=== PATIENT | female | born 1975 | race Caucasian/White ===

== ENCOUNTER 2020-02-09 18:33 | Inpatient (IN) | payer OTHER ==
[~2020-02-09] VITALS: Ht 149.9 cm; Wt 45.4 kg
--- NOTE | ~2020-02-09 | HC ---
Formerly [facility] [place] [address] CONSULTATION Name: MARY HERNADEZ Room #: [facility] IN M.R.#: [id number] Admission: 02/09/20 Attend Phys: Axel Nelson Discharge: Date of : 71 Report #: [id number] THIS REPORT FOR: cc: DESMOND King family physician/PCP DESMOND - Christine family physician/PCP Rosario Blanco MD ~ CC: [facility] physician/PCP Axel Nelson REASON FOR CONSULTATION: Hyponatremia. REASON FOR PRESENTATION: Vomiting. HISTORY OF PRESENT ILLNESS: A 45-year-old with no known previous medical problems. She presented to the hospital reporting significant weakness after about a week history of vomiting and nausea. She was unable to tolerate oral intake. She denies any abdominal pain. She denies any previous similar episodes. The patient was found to be hyponatremic with a sodium of 114. She denies any previous similar events. She does not take any regular medications. She denies drug or alcohol abuse. The patient; however, admitted to excessive water intake about 12 pitchers of the 500 mL container a day. She denies any headache or dizziness. No seizure activities. She was started on IV fluid and her sodium had risen up to 120 from 114 on presentation within about 4 hours mandating a Nephrology consultation. ALLERGIES: CODEINE AND PENICILLIN. PAST MEDICAL HISTORY: None. FAMILY HISTORY: Mom of diabetes. MEDICATIONS: Folic acid. REVIEW OF SYSTEMS: GENERAL: No fever or chills. However, she did have significant weakness. CARDIOVASCULAR: No chest pain or palpitation. PULMONARY: No cough or hemoptysis. GASTROINTESTINAL: As per the history of present illness. GENITOURINARY: No frequency, no urgency. MUSCULOSKELETAL: No back pain, no morning stiffness. PHYSICAL EXAMINATION: GENERAL: She is alert, oriented, in no apparent distress. VITAL SIGNS: Blood pressure on presentation was 124/84. HEAD AND NECK: No jugular venous distention, no bruit, no thyromegaly. Emaciated and cachectic. CARDIOVASCULAR: No rub detected. Regular. Formerly [facility] [address] [place] [address] CONSULTATION Name: SATYAMARY Room #: [facility]- [facility]M IN M.R.#: [id number] Admission: 02/09/20 Attend Phys: Axel Nelson Discharge: Date of : 71 Report #: [id number] CHEST: No crackles or wheezes. ABDOMEN: Soft, nontender. EXTREMITIES: Lower extremities, no edema. NEUROLOGICAL: Alert, oriented x3. No gross neurological deficit. LABORATORY VALUES: Reviewed. Sodium is 120, potassium is 2.7, chloride is 82. BUN is 7, creatinine 0.4. Magnesium on presentation was 1.2. IMPRESSION AND PLAN: 1. Acute hyponatremia. 2. Hypomagnesemia. 3. Excessive water intake. 4. Suspected excessive alcohol intake. 5. Her hyponatremia is well explained by her excessive water intake and low solid intake. There might be an element of alcohol abuse here given her significant hypokalemia and hypomagnesemia. 6. Her sodium has gone up by 6 mEq over a period of 5 hours and her IV fluid needs to be discontinued. Continue to replace her potassium. 7. Repeat labs. 8. Discontinue IV fluid. 9. Her sodium issue should be handled with fluid restriction alone and this would rectify within the next 24-48 hours. She has no indication for any other measures. Further management of her hyponatremia including 3% saline. By: [id number] Rosario Blanco MD /nt
[2020-02-09 18:38] VITALS: BP 124/84
[2020-02-09] MEDS ORDERED: CENTRUM COMPLE1 EACH PO (19:17)
[2020-02-09 19:18] LABS: URINE BLOOD TRACE (Negative); URINE CLARITY CLEAR; URINE COLOR YELLOW; URINE GLUCOSE-RANDOM* NEGATIVE (Negative); URINE KETONES 3+ (Negative); URINE LEUKOCYTES-REFLEX NEGATIVE (Negative); URINE NITRITE-REFLEX NEGATIVE (Negative); URINE PROTEIN (DIPSTICK) 2+ (Negative); URINE SPECIFIC GRAVITY >= 1.030 (1.005-1.035)
[2020-02-09 19:22] LABS: ICTOTEST (BILI CONFIRMATORY) Negative (Negative); URINE BILIRUBIN NEGATIVE (Negative)
[2020-02-09 19:23] LABS: URINE REDUCING SUBSTANCE NEGATIVE
[2020-02-09 19:35] LABS: BACTERIA-REFLEX 1-9 Few /HPF (None Seen); CASTS None Seen /LPF (None Seen); CRYSTALS None Seen /LPF (None Seen); SQUAMOUS 4-10 Moderate /LPF (0-3); URINE RBC 0-2 Rare /HPF (0-2); URINE WBC-REFLEX 0-5 Rare /HPF (0-5)
[2020-02-09 20:06] LABS: ABSOLUTE NEUTROPHILS 8.5 thou/uL (1.4-8.2); BASOPHILS 0.1 % (0.0-2.0); EOSINOPHILS 0.2 % (0.0-3.0); HEMATOCRIT 42.6 % (37.0-47.0); HEMOGLOBIN 15.3 gm/dL (12.0-15.0); LYMPHOCYTES 9.8 % (24.0-44.0); MCH 33.6 pg (26.0-34.0); MCHC 35.8 g/dL (28.0-37.0); MCV 93.8 fL (80.0-100.0); MONOCYTES 5.1 % (1.0-8.0); POLYS 84.8 % (36.0-66.0); RBC 4.54 mil/uL (4.20-5.00); RDW 13.4 % (10.5-14.5); WBC 10.1 thou/uL (4.0-11.0)
[2020-02-09 20:21] LABS: ANISOCYTOSIS 1+
[2020-02-09 20:22] LABS: PLATELET COUNT 59 thou/uL (150-400)
[2020-02-09 21:22] LABS: ALBUMIN 2.9 g/dL (3.4-5.0); CALCIUM 7.7 mg/dL (8.5-10.1); CREATININE 0.4 mg/dL (0.6-1.0); TOTAL PROTEIN 6.1 g/dL (6.4-8.2)
[2020-02-09 21:24] LABS: POTASSIUM 2.4 mmol/L (3.5-5.1)
[2020-02-09 22:26] VITALS: BP 135/84
[2020-02-09 22:43] VITALS: BP 135/84
[2020-02-10] VITALS (15 sets, daily range): BP systolic 83–108; BP diastolic 47–74
[2020-02-10 01:21] LABS: CALCIUM 7.6 mg/dL (8.5-10.1); CREATININE 0.4 mg/dL (0.6-1.0); MAGNESIUM 1.2 mg/dL (1.8-2.4)
[2020-02-10 01:35] LABS: POTASSIUM 2.7 mmol/L (3.5-5.1)
--- NOTE | 2020-02-10 04:51 | NUR ---
PT IS AN ER ADMITTED, WHO WAS ADMITTED WITH HYPOKALEMIA, N&V, HYPONATREMIA. PT IS STABLE. NO SIGN OF DISTRESS NOTED. PT IS ALERT AND ORIENTED. ADMISSION ASSESSMENT, EDUCATION AND DATA COMPLETED. DENIES ANY PAIN. NO SIGN OF NAUSEA. FALL PRECAUTION IN PLACE. SCHEDULED MEDS ADMINISTERED TO PT. TOLERATING IV MEDS ADMINISTERED. DENIES ANY FURTHER NEEDS AT THIS TIME.
[2020-02-10 08:06] LABS: CALCIUM 8.5 mg/dL (8.5-10.1); CREATININE 0.5 mg/dL (0.6-1.0)
[2020-02-10 08:10] LABS: POTASSIUM 2.8 mmol/L (3.5-5.1)
--- NOTE | 2020-02-10 08:12 | NUR ---
Dr. Blanco rounded this morning, early. He called recently and expressed to discontinue the IVF and call with morning labs. Nurse noted critical potassium lab value. She is currently receiving a potassium infusion, however, it is gtt slowly as it is painful to her. This was relayed to Dr. Blanco who expressed she needs a picc line. IV team to be notified when they arrive today.
--- NOTE | 2020-02-10 08:22 | NUR ---
Dr. Blanco returned call. Regular diet ordered with 1500ml fluid restriction Stop IV potassium for now and give oral potassium. Place picc line.
--- NOTE | 2020-02-10 09:12 | NUR ---
cm tried x 3 to reach pt at bedside via phone. there is phone in her room but unable to dial into the room. cm spoke with bedside nurse and asked to have ger call cm. cm also tried calling pt number listed and went to voice mail for ger, cm did leave a message requested call back.
--- NOTE | 2020-02-10 10:30 | NUR ---
1030- IV TEAM RN HERE FOR PICC LINE PLACEMENT PER DR. HERNÁNDEZ ORDER. PATIENT REQUIRING IV ELECTROLYTE REPLACEMENT AND SHE IS UNABLE TO TOLERATE IT THROUGH THE PERIPHERAL IV ROUTE. NURSE PROVIDED RISKS VS BENEFITS FOR THE LINE PLACEMENT. PATIENT EXPRESSED SHE UNDERSTOOD. CONSENT SIGNED.
--- NOTE | 2020-02-10 11:13 | NUR ---
VASCULAR ACCESS CONSULTED FOR PICC LINE FOR ACCESS. PT'S LABS,MEDS,HISTORY,ORDER AND CONSENT VERIFIED. DISCUSSED BENEFITS AND RISK WITH PT, VERBALIZED UNDERSTANDING. RASHAWN AVILES WAS WIDELY PATENT WITH USG, 4FR POWER PICC TRIMMED TO 40CM INSERTED TO 2CM EXTERNAL. PT TOLERATED WELL. STAT CXR ORDERED.
--- NOTE | 2020-02-10 11:43 | NUR ---
CXR CONFIRMED PICC IN SVC, RELEASED FOR IMMEDIATE USE PER PROTOCOL TO MOISES GRISSOM
--- NOTE | 2020-02-10 11:55 | NUR ---
1155- CHEST XRAY PERFORMED. CONFIRMATION OF LINE PLACEMENT OBTAINED, LINE IN GOOD POSITION PER IV TEAM RN AND RADIOLOGY. PATIENT RESTING AT THIS TIME.
--- NOTE | 2020-02-10 15:01 | NUR ---
PATIENT TRANSFERED TO CCU ROOM 218. SHE HAD HER CLOTHES, GLASSES, CELL PHONE. POTASSIUM WAS PROVIDED IV PRIOR TO TRANSFER PER MD ORDER.
--- NOTE | 2020-02-10 17:31 | NUR ---
ASSUMED CARE OF PT AT APPROX 1430 FROM ICU. ASSESSEMENTS CHARTED. MEDS GIVEN PER MAR. PT A&OX4, NO C/O N/V. PT UP WITH ASST D/T IV POLE. WILL CONTINUE TO MONITOR AND FOLLOW POC.
[2020-02-11 04:40] VITALS: BP 134/74
--- NOTE | 2020-02-11 05:55 | NUR ---
Pt. slept fair during the night. Denies any pain.No nausea or vomiting. Voiding per toilet and calls appropriately. Bed alarm on for safety. Compliant with fluid restriction. Making progress towards care plan goals.
[2020-02-11 06:16] LABS: CALCIUM 8.3 mg/dL (8.5-10.1); CREATININE 0.5 mg/dL (0.6-1.0); POTASSIUM 3.3 mmol/L (3.5-5.1)
[2020-02-11 08:26] VITALS: BP 110/64
[2020-02-11 08:35] VITALS: BP 110/64
[2020-02-11 09:43] VITALS: BP 110/64
--- NOTE | 2020-02-11 11:22 | NUR ---
ASSUMMED PT CARE AT APPROXIMATELY 0700. PT A&O X4. ASSESSMENT CHARTED. FALL PRECAUTIONS IN PLACE. PT DENIES HAVING CHEST PAIN. PT DENIES HAVING ACUTE PAIN. PT DENIES HAVING SOB. PT DISCHARGING HOME C SELF CARE. VITAL SIGNS STABLE. PT RECIEVED DISCHARGE EDUCATION. PT STATED UNDERSTANDING AND DENIED HAVING FURTHER QUESTIONS. TELE DC. PICC DC. PT AMBULATES STEADY/INDEPENDENT. PT COMFORTABLE. PT DENIES HAVING FURTHER CONCERNS. PT AWAITING RIDE TO ARRIVE. PT WILL HAVING HOSPITAL TRANSPORT ESCORT PT OFF UNIT.
--- NOTE | 2020-02-11 11:33 | NUR ---
PT CARE ASSUMED APPROXIMATELY 0700. PT ASSESSMENT CHARTED. PT MEDICATION CHARTED. VSS. PT DENIES PAIN. PT DISCHARGED. PT TELE D/C'D. PT PICC LINE D/C'D, PRESSURE HELD FOR 5 MINUTES.
== END 2020-02-11 11:59 | disposition home or self-care (01) | DRG 392 ==
LOC: ER 18:33 → ICU 22:12 → EROBS 22:12 → ICU 22:37 → 2N 02-10 14:46
PROVIDERS: Emergency Medicine; Nurse Practitioner Family; ADMIT Hospitalist
PROC: 02HV33Z Insertion of Infusion Device into Superior Vena Cava, Percutaneous Approach (ICD-10-PCS; principal; 2020-02-10)
DX: K29.70 Gastritis, unspecified, without bleeding (principal); E87.1 Hypo-osmolality and hyponatremia; E83.42 Hypomagnesemia; F17.210 Nicotine dependence, cigarettes, uncomplicated; E87.6 Hypokalemia; Z71.6 Tobacco abuse counseling; I25.2 Old myocardial infarction; Z88.6 Allergy status to analgesic agent; Z88.0 Allergy status to penicillin; Z88.8 Allergy status to other drugs, medicaments and biological substances; Z83.3 Family history of diabetes mellitus
CPT/HCPCS: 10078; 10081; 27000

== ENCOUNTER 2020-05-22 16:09 | Inpatient (IN) | payer OTHER ==
[~2020-05-22] VITALS: Ht 149.9 cm; Wt 41.9 kg
[~2020-05-22 16:09] MED LIST: CENTRUM COMPLE1 EACH PO
[2020-05-22 16:33] VITALS: BP 143/105
[2020-05-22] MEDS ORDERED: MAGNESIUM250 M1 PO (16:40)
--- NOTE | 2020-05-22 17:12 | EKG ---
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
[2020-05-22 17:21] LABS: ABSOLUTE NEUTROPHILS 7.8 thou/uL (1.4-8.2); BASOPHILS 0.6 % (0.0-2.0); EOSINOPHILS 0.4 % (0.0-3.0); HEMATOCRIT 44.4 % (37.0-47.0); HEMOGLOBIN 15.6 gm/dL (12.0-15.0); LYMPHOCYTES 10.2 % (24.0-44.0); MCH 35.7 pg (26.0-34.0); MCV 101.9 fL (80.0-100.0); MONOCYTES 6.5 % (1.0-8.0); PLATELET COUNT 120 thou/uL (150-400); POLYS 82.3 % (36.0-66.0); RBC 4.36 mil/uL (4.20-5.00); RDW 14.2 % (10.5-14.5); WBC 9.5 thou/uL (4.0-11.0)
[2020-05-22 17:24] LABS: ANION GAP 12 mmol/L (7-16); BUN 3 mg/dL (7-18); CALCIUM 9.6 mg/dL (8.5-10.1); CHLORIDE 89 mmol/L (98-107); CO2 25 mmol/L (21-32); CREATININE 0.5 mg/dL (0.6-1.0); GLUCOSE 127 mg/dL (74-106); POTASSIUM 3.5 mmol/L (3.5-5.1); SODIUM 126 mmol/L (136-145)
[2020-05-22 17:32] LABS: LIPASE 166 U/L (73-393); TROPONIN-I <0.06 ng/mL (<0.06)
[2020-05-22 21:18] VITALS: BP 117/73
[2020-05-22 22:00] VITALS: BP 124/77
[2020-05-23 04:30] VITALS: BP 135/89
[2020-05-23 06:46] LABS: CREATININE 0.6 mg/dL (0.6-1.0); MAGNESIUM 1.9 mg/dL (1.8-2.4); POTASSIUM 3.2 mmol/L (3.5-5.1)
[2020-05-23 07:34] VITALS: BP 122/83
[2020-05-23 12:19] VITALS: BP 143/99
--- NOTE | 2020-05-23 13:28 | NUR ---
PT CARE ASSUMED AT 0700, PT ALERT AND ORIENTED X4, PT DENIES CHEST PAIN, NAUSEA AND VOMITTING. PT COMPLAINS OF ABDOMEN PAIN WHEN COUGHING. PT STATES TOLERATING FOOD BETTER AND DENIES ANY NAUSEA. PT TOOK A BATH THIS AM. PT DENIES ANY NEEDS AT THE MOMENT. CALL LIGHT AND TABLE IN REACH. BED AT LOWEST LEVEL WITH ALARM ON.
[2020-05-23 15:13] VITALS: BP 120/88
--- NOTE | 2020-05-23 16:35 | NUR ---
ASSESSMENT: CM REVIEWED CHART AND SPOKE WITH PATIENT. PT IS ALERT AND ORIENTED X4. PT WAS ADMITTED DUE TO HYPONATREMIA AND COMPLAINING OF ABDOMINAL PAIN. NEPHROLOGY WAS CONSULTED FOR PATIENT. PT WAS TESTED FOR COVID 19 AND FIRST TEST IS NEGATIVE. PT REPORTS THAT SHE LIVES IN AN APT WITH HER FIANCE. PT REPORTS SHE HAS THREE STEPS WITH HANDRAILS ON BOTH SIDES TO ENTER. PT REPORTS PRIOR TO ADMISSION SHE WAS INDEPENDENT WITH ADLS AND AMBULATION. PT REPORTS HX OF HYPOGLYCEMIA AND STATES HER GLUCOMETER BROKE AND SHE HAS NOT BEEN CHECKING HER SUGARS. PT REPORTS SHE NORMALLY TRIES TO CONTROL HER BLOOD SUGAR BY HER DIET AND DOES NOT TAKE ANY MEDICATION FOR IT. PT REPORTS THAT SHE CURRENTLY DOES NOT HAVE ANY INSURANCE BUT STATES SHE HAS BEEN IN CONTACT WITH [employer] AND WORKING WITH THEM. PT REPORTS THAT SHE WILL LIKELY NEED ASSISTANCE WITH MEDICATIONS IF SHE IS STARTED ON ANYTHING NEW DUE TO FINANCIAL HARDSHIPS. CM DISCUSSED ROLE. PT DOES NOT ANTICIPATE HAVING ANY NEEDS AT DISCHARGE OTHER THEN POSSIBLE ASSITANCE WITH MEDICATIONS AT DISCHARGE OR A NEW GLUCOMETER IF NEEDED. PT STATES SHE RECENTLY FOUND A PRIMARY CARE PHYSICIAN THAT WILL ACCEPT HER SHE JUST HAS NOT SEEN HER YET, HER NAME IS DR. ROGERS IN [place], [place]. PT HAS HX OF ALCOHOL USE BUT DENIES THE NEED FOR RESOURCES AT THIS TIME. CM WILL CONTINUE TO FOLLOW TO ASSIST NEEDED. .
--- NOTE | 2020-05-23 19:09 | NUR ---
1845 PT TRANSFERRED TO , ROOM 200. REPORT GIVEN TO JACIEL HOLLOWAY. PT BELONGINGS PACKED AND SENT WITH PT.
[2020-05-23 19:14] VITALS: BP 134/86
[2020-05-24 00:03] VITALS: BP 134/81
--- NOTE | 2020-05-24 03:27 | NUR ---
ASSUMED PT CARE AT 1900. PT WAS A TRANSFER FROM . PT IS ALERT AND ORIENTED. NO SIGN OF DISTRESS NOTED. NO COMPLIANT OF NAUSEA OR VOMITING EXCEPT FOR HEART BURN, DENIES ANY PAIN. FALL PRECAUTION IN PLACE. CALL LIGHT WITHIN REACH ASSESSMENT COMPLETED AND DOCUMENTED ON PT. SCHEDULED MEDS ADMINISTERED TO PT. TOLERATED PO INTAKE. CONTINUE TO MONITOR PT. NO ACUTE SIGN OF DISTRESS NOTED IN PT.
[2020-05-24 05:31] VITALS: BP 135/78
[2020-05-24 05:40] LABS: HEMATOCRIT 39.9 % (37.0-47.0); MCH 35.7 pg (26.0-34.0); MCV 104.9 fL (80.0-100.0); RBC 3.8 mil/uL (4.20-5.00); RDW 14.4 % (10.5-14.5); WBC 8.5 thou/uL (4.0-11.0)
[2020-05-24 05:43] LABS: ALBUMIN 2.6 g/dL (3.4-5.0); CALCIUM 8.9 mg/dL (8.5-10.1); CREATININE 0.5 mg/dL (0.6-1.0); PHOSPHORUS 3.2 mg/dL (2.5-4.9); POTASSIUM 3.9 mmol/L (3.5-5.1)
[2020-05-24 05:58] LABS: HEMOGLOBIN 13.6 gm/dL (12.0-15.0)
[2020-05-24 07:15] VITALS: BP 138/89
[2020-05-24] MEDS ORDERED: ZOFRAN ODT4 MG DISSOLVE (08:43)
[2020-05-24] MEDS ORDERED: PROTONIX40 M1 PO (08:44)
--- NOTE | 2020-05-24 10:29 | NUR ---
RECEIVED PT'S CARE AROUND 0725; PT. ON BED; AWAKE; ALERT; DURING AM ASSESSMENT AOX4; NO C/O PAIN; AM MEDICATIONS GIVEN; [facility] WERE IN ROOM & WAS ABOUT TO BE D/C; REQUESTED TO TAKE A SHOWER BEFORE LEAVING; EDUCATED ABOUT D/C PROCESS; ST. UND[facility]STAND[facility]; EDUCATED ABOUT FALL PREVENTIONS; ST. 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
[2020-05-24 10:40] VITALS: BP 138/89
--- NOTE | 2020-05-24 13:13 | NUR ---
Pt dc'd to home today via family car. No cm interventions indicated. Pt had two scripts sent to her pharmacy and indicated she can use goodrx or coupon to try to make them affordable.
== END 2020-05-24 10:55 | disposition home or self-care (01) | DRG 640 ==
LOC: ER 16:09 → 3W 18:55 → EROBS 18:55 → 3W 21:44 → 2N 05-23 19:01
PROVIDERS: Emergency Medicine; Hospitalist; ADMIT Hospitalist; ATTEND Hospitalist
DX: E87.1 Hypo-osmolality and hyponatremia (principal); E43 Unspecified severe protein-calorie malnutrition; E83.42 Hypomagnesemia; I25.10 Atherosclerotic heart disease of native coronary artery without angina pectoris; F17.210 Nicotine dependence, cigarettes, uncomplicated; Z20.828 Contact with and (suspected) exposure to other viral communicable diseases; Z68.1 Body mass index [BMI] 19.9 or less, adult; I25.2 Old myocardial infarction; Z88.6 Allergy status to analgesic agent; Z88.0 Allergy status to penicillin; Z88.8 Allergy status to other drugs, medicaments and biological substances; Z71.6 Tobacco abuse counseling
CPT/HCPCS: 10081; 10879